=== PATIENT | male | born 1935 | race African-American/Black ===

== ENCOUNTER 2017-10-13 14:48 | Inpatient (IN) | payer MEDICARE, MEDICAID ==
[~2017-10-13] VITALS: Ht 170.2 cm; Wt 77.1 kg
[2017-10-13 16:26] LABS: BASOPHILS % 0.8 % (0.0-2.0); EOSINOPHILS % 0.7 % (0.0-5.0); HEMATOCRIT. 41.5 % (42.0-52.0); HEMOGLOBIN. 13.8 g/dL (14.0-18.0); LYMPHOCYTES % 11.1 % (20.0-50.0); MEAN CORPUSCULAR HEMOGLOBIN 27.9 pg (28.0-32.0); MEAN CORPUSCULAR VOLUME 84.2 fL (80.0-94.0); MONOCYTES % 5.9 % (2.0-8.0); NEUTROPHILS % 81.5 % (40.0-76.0); PLATELET 214 x1000/uL (130-400); RED BLOOD CELL COUNT 4.93 mill/uL (4.7-6.1); RED CELL DISTRIBUTION WIDTH 15.6 % (11.6-14.6)
[2017-10-13] MEDS ORDERED: LEVOFLOXACIN 750MG PREMIX 150 ML IV ONE (16:30)
[2017-10-13 16:32] LABS: CHLORIDE 103 mEq/L (98-107); INR 1.1
[2017-10-13] MEDS ORDERED: SODIUM CHLORIDE 0.9% 1,000 ML IV ONE (17:41)
[2017-10-13 17:55] LABS: CLARITY URINE CLEAR (CLEAR); COLOR URINE YELLOW (YELLOW); KETONES URINE NEGATIVE (NEGATIVE); LEUKOCYTE ESTERASE URINE NEGATIVE (NEGATIVE); NITRITE URINE NEGATIVE (NEGATIVE); OCCULT BLOOD URINE NEGATIVE (NEGATIVE); PH URINE 6.5 (4.5-8.0); PROTEIN URINE NEGATIVE (NEGATIVE); UROBILINOGEN URINE 0.2 E.U./dL (0.2-1.0)
[2017-10-13 20:00] VITALS: BP 139/102
[2017-10-13 22:00] VITALS: BP 139/99
[2017-10-13] MEDS ORDERED: ACETAMINOPHEN 325MG TABLET PO PRN (22:00)
[2017-10-13 22:57] LABS: BASOPHILS % 0.4 % (0.0-2.0); EOSINOPHILS % 0.3 % (0.0-5.0); HEMATOCRIT. 39.5 % (42.0-52.0); HEMOGLOBIN. 13.1 g/dL (14.0-18.0); LYMPHOCYTES % 12.2 % (20.0-50.0); MEAN CORPUSCULAR HEMOGLOBIN 27.7 pg (28.0-32.0); MEAN CORPUSCULAR VOLUME 83.8 fL (80.0-94.0); MONOCYTES % 4.1 % (2.0-8.0); PLATELET 218 x1000/uL (130-400); RED BLOOD CELL COUNT 4.72 mill/uL (4.7-6.1); RED CELL DISTRIBUTION WIDTH 15.1 % (11.6-14.6)
[2017-10-14] VITALS (7 sets, daily range): BP systolic 123–154; BP diastolic 9–100
[2017-10-14] MEDS: ENOXAPARIN 40MG/0.4ML SYR SUBCUT SCH (08:22)
[2017-10-14] MEDS: IPRATROPIUM/ALBUTEROL 0.5-3(2.5)MG/3ML NEB HHN SCH ×4 (12:30→23:57)
[2017-10-14] MEDS ORDERED: CLONIDINE 0.1MG TABLET PO PRN (13:45)
[2017-10-14] MEDS: LEVOFLOXACIN 500MG PREMIX 100 ML IV SCH (17:06)
[2017-10-15] VITALS: BP 139/92
[2017-10-15 04:00] VITALS: BP 144/98
[2017-10-15] MEDS: IPRATROPIUM/ALBUTEROL 0.5-3(2.5)MG/3ML NEB HHN SCH ×5 (04:11→20:00)
[2017-10-15 06:40] LABS: BASOPHILS % 0.4 % (0.0-2.0); EOSINOPHILS % 2.9 % (0.0-5.0); HEMATOCRIT. 38.2 % (42.0-52.0); HEMOGLOBIN. 12.6 g/dL (14.0-18.0); LYMPHOCYTES % 17.8 % (20.0-50.0); MEAN CORPUSCULAR HEMOGLOBIN 27.8 pg (28.0-32.0); MEAN CORPUSCULAR VOLUME 84.6 fL (80.0-94.0); MEAN PLATELET VOLUME 9.4 fl (7.4-10.4); MONOCYTES % 7.1 % (2.0-8.0); NEUTROPHILS % 71.8 % (40.0-76.0); PLATELET 187 x1000/uL (130-400); RED BLOOD CELL COUNT 4.52 mill/uL (4.7-6.1); RED CELL DISTRIBUTION WIDTH 15.3 % (11.6-14.6)
[2017-10-15 07:09] LABS: CHLORIDE 104 mEq/L (98-107)
[2017-10-15 08:00] VITALS: BP 148/90
[2017-10-15] MEDS: ENOXAPARIN 40MG/0.4ML SYR SUBCUT SCH (09:43)
[2017-10-15] MEDS ORDERED: IPRATROPIUM/ALBUTEROL 0.5-3(2.5)MG/3ML NEB HHN PRN (10:30)
[2017-10-15 12:00] VITALS: BP 144/91
[2017-10-15 16:00] VITALS: BP 124/83
[2017-10-15] MEDS: LEVOFLOXACIN 500MG PREMIX 100 ML IV SCH (18:22)
[2017-10-15] MEDS ORDERED: METRONIDAZOLE 500MG TABLET PO SCH (21:00)
== END 2017-10-15 21:40 | disposition home or self-care (01) | DRG 871 ==
LOC: EDBEDREQ 17:41 → EDBEDREQTM 17:41 → ER 18:03 → ENRESERV 18:41 → 8WST 19:55
PROVIDERS: ADMIT Internal Medicine; ATTEND Internal Medicine
DX: A41.9 Sepsis, unspecified organism (principal); J96.00 Acute respiratory failure, unspecified whether with hypoxia or hypercapnia; J18.9 Pneumonia, unspecified organism; I50.40 Unspecified combined systolic (congestive) and diastolic (congestive) heart failure; I25.10 Atherosclerotic heart disease of native coronary artery without angina pectoris; D64.9 Anemia, unspecified; E78.00 Pure hypercholesterolemia, unspecified; I11.0 Hypertensive heart disease with heart failure; E78.5 Hyperlipidemia, unspecified; E87.6 Hypokalemia; F03.90 Unspecified dementia, unspecified severity, without behavioral disturbance, psychotic disturbance, mood disturbance, and anxiety; I73.9 Peripheral vascular disease, unspecified; Z95.0 Presence of cardiac pacemaker; Z85.46 Personal history of malignant neoplasm of prostate; Z86.73 Personal history of transient ischemic attack (TIA), and cerebral infarction without residual deficits
CPT/HCPCS: 36415; 71045; 80048; 80053; 80061; 81003; 83605; 83880; 84443; 84484; 85025; 85610; 87040; 92610; 93005; 93306; 94640; 96365; 96366; 97162; 97530; 99285; J1650; J1956; J7030; J7050; J7620

== ENCOUNTER 2018-04-05 12:31 | Emergency (ER) | payer MEDICARE, MEDICAID ==
[~2018-04-05] VITALS: Ht 172.7 cm; Wt 82.0 kg
[2018-04-05 12:47] VITALS: BP 166/104
== END 2018-04-05 18:11 | disposition left against medical advice (07) ==
LOC: ER 12:31
DX: R53.1 Weakness (principal); Z53.21 Procedure and treatment not carried out due to patient leaving prior to being seen by health care provider
CPT/HCPCS: 82962

== ENCOUNTER 2018-05-06 20:29 | Inpatient (IN) | payer OTHER, MEDICAID ==
[~2018-05-06] VITALS: Ht 172.7 cm; Wt 83.9 kg
[2018-05-07] MEDS ORDERED: SODIUM CHLORIDE 0.9% 1,000 ML IV ONE (00:05)
[2018-05-07] MEDS ORDERED: KETOROLAC 30MG/ML VIAL IV STA (00:05)
[2018-05-07 00:34] LABS: EOSINOPHILS % 3.8 % (0.0-5.0); HEMATOCRIT. 38.8 % (42.0-52.0); HEMOGLOBIN. 12.7 g/dL (14.0-18.0); LYMPHOCYTES % 26.1 % (20.0-50.0); MEAN CORPUSCULAR HEMOGLOBIN 27.7 pg (28.0-32.0); MEAN CORPUSCULAR VOLUME 84.7 fL (80.0-94.0); MEAN PLATELET VOLUME 8.8 fl (7.4-10.4); MONOCYTES % 9.2 % (2.0-8.0); NEUTROPHILS % 59.9 % (40.0-76.0); PLATELET 307 x1000/uL (130-400); RED BLOOD CELL COUNT 4.59 mill/uL (4.7-6.1); RED CELL DISTRIBUTION WIDTH 14.7 % (11.6-14.6)
[2018-05-07 00:40] LABS: CHLORIDE 107 mEq/L (98-107)
[2018-05-07 00:48] LABS: CREATINE KINASE 146 IU/L (39-308)
[2018-05-07 01:52] LABS: CLARITY URINE CLEAR (CLEAR); COLOR URINE YELLOW (YELLOW); KETONES URINE NEGATIVE (NEGATIVE); LEUKOCYTE ESTERASE URINE NEGATIVE (NEGATIVE); NITRITE URINE NEGATIVE (NEGATIVE); OCCULT BLOOD URINE NEGATIVE (NEGATIVE); PH URINE 5.5 (4.5-8.0); PROTEIN URINE NEGATIVE (NEGATIVE); SPECIFIC GRAVITY URINE 1.021 (1.005-1.030)
[2018-05-07] MEDS ORDERED: OLANZAPINE 10 MG/VIAL IM NR (02:15)
[2018-05-07 10:30] VITALS: BP 135/94
[2018-05-07 11:58] VITALS: BP 140/84
[2018-05-07] MEDS ORDERED: AMLO10TA80 PO (14:05)
[2018-05-07] MEDS ORDERED: ASPI-1159 PO (14:05)
[2018-05-07] MEDS ORDERED: ATOR40TA70 PO (14:05)
[2018-05-07] MEDS ORDERED: TICA90TA PO (14:05)
[2018-05-07] MEDS ORDERED: CARV12.545 PO (14:05)
[2018-05-07 16:00] VITALS: BP 126/80
[2018-05-07] MEDS ORDERED: ACETAMINOPHEN 325MG TABLET PO PRN (17:15)
[2018-05-07] MEDS: CARVEDILOL 12.5MG TABLET PO SCH (17:34)
[2018-05-07] MEDS: TICAGRELOR 90 MG TABLET PO SCH (17:34)
[2018-05-07 20:28] VITALS: BP 180/100
[2018-05-07 20:38] VITALS: BP 127/73
[2018-05-07] MEDS: ATORVASTATIN CALCIUM 40MG TABLET PO SCH (21:09)
[2018-05-08] VITALS (7 sets, daily range): BP systolic 118–169; BP diastolic 70–95
[2018-05-08 05:34] LABS: BASOPHILS % 1.2 % (0.0-2.0); EOSINOPHILS % 6.2 % (0.0-5.0); HEMATOCRIT. 38.1 % (42.0-52.0); HEMOGLOBIN. 12.5 g/dL (14.0-18.0); LYMPHOCYTES % 31.3 % (20.0-50.0); MEAN CORPUSCULAR HEMOGLOBIN 28.1 pg (28.0-32.0); MEAN CORPUSCULAR VOLUME 85.2 fL (80.0-94.0); MEAN PLATELET VOLUME 8.6 fl (7.4-10.4); MONOCYTES % 7.5 % (2.0-8.0); NEUTROPHILS % 53.8 % (40.0-76.0); PLATELET 300 x1000/uL (130-400); RED BLOOD CELL COUNT 4.47 mill/uL (4.7-6.1); RED CELL DISTRIBUTION WIDTH 14.7 % (11.6-14.6)
[2018-05-08 06:59] LABS: CHLORIDE 111 mEq/L (98-107)
[2018-05-08 07:07] LABS: LDL CHOLESTEROL 69 mg/dL (5-100)
[2018-05-08 07:08] LABS: PHOSPHORUS 3.4 mg/dL (2.5-4.9)
[2018-05-08 07:10] LABS: HDL CHOLESTEROL 71 mg/dL (40-59)
[2018-05-08 07:15] LABS: T4 FREE 0.98 ng/dL (0.76-1.46); TOTAL IRON BINDING CAPACITY 213 ug/dL (250-450)
[2018-05-08 07:31] LABS: VITAMIN B12 SERUM 811 pg/mL (211-911)
[2018-05-08] MEDS: AMLODIPINE 10MG TABLET PO SCH (11:30)
[2018-05-08] MEDS: ASPIRIN 81MG TABLET PO SCH (11:31)
[2018-05-08] MEDS: CARVEDILOL 12.5MG TABLET PO SCH ×2 (11:31→17:56)
[2018-05-08] MEDS: TICAGRELOR 90 MG TABLET PO SCH ×2 (11:31→17:56)
[2018-05-08] MEDS ORDERED: INFLUENZA VIRUS VACCINE(AFLURIA) 0.5ML SYR IM ONE (17:45)
[2018-05-08] MEDS ORDERED: PNEUMOCOCCAL 23-VAL P-SAC VAC 0.5 ML IM ONE (17:45)
[2018-05-08] MEDS: ATORVASTATIN CALCIUM 40MG TABLET PO SCH (21:26)
[2018-05-08] MEDS: MEMANTINE HCL 5MG TABLET PO SCH (21:27)
[2018-05-09] VITALS: BP 127/88
[2018-05-09 04:00] VITALS: BP 130/79
[2018-05-09 07:14] LABS: BASOPHILS % 1.1 % (0.0-2.0); EOSINOPHILS % 5.8 % (0.0-5.0); HEMATOCRIT. 40.4 % (42.0-52.0); HEMOGLOBIN. 12.9 g/dL (14.0-18.0); LYMPHOCYTES % 22.4 % (20.0-50.0); MEAN CORPUSCULAR HEMOGLOBIN 27.5 pg (28.0-32.0); MEAN CORPUSCULAR VOLUME 86.1 fL (80.0-94.0); MEAN PLATELET VOLUME 9.1 fl (7.4-10.4); MONOCYTES % 6.2 % (2.0-8.0); NEUTROPHILS % 64.5 % (40.0-76.0); PLATELET 298 x1000/uL (130-400); RED BLOOD CELL COUNT 4.69 mill/uL (4.7-6.1); RED CELL DISTRIBUTION WIDTH 14.6 % (11.6-14.6)
[2018-05-09 08:00] VITALS: BP 146/90
[2018-05-09] MEDS: ASPIRIN 81MG TABLET PO SCH (09:01)
[2018-05-09] MEDS: AMLODIPINE 10MG TABLET PO SCH (09:01)
[2018-05-09] MEDS: TICAGRELOR 90 MG TABLET PO SCH (09:01)
[2018-05-09] MEDS: CARVEDILOL 12.5MG TABLET PO SCH (09:01)
[2018-05-09] MEDS: MEMANTINE HCL 5MG TABLET PO SCH (09:01)
[2018-05-09 13:06] VITALS: BP 131/80
[2018-05-12 04:11] LABS: 25-HYDROXY VITAMIN D3 15 ng/mL (.)
== END 2018-05-09 16:15 | disposition home or self-care (01) | DRG 72 ==
LOC: ER 20:29 → 8WST 05-07 03:06 → EDBEDREQ 05-07 03:09 → EDBEDREQTM 05-07 03:09 → ENRESERV 05-07 07:25
PROVIDERS: ADMIT Internal Medicine; ATTEND Internal Medicine
DX: G93.40 Encephalopathy, unspecified (principal); Z74.01 Bed confinement status; I25.10 Atherosclerotic heart disease of native coronary artery without angina pectoris; R62.7 Adult failure to thrive; R41.89 Other symptoms and signs involving cognitive functions and awareness; F03.90 Unspecified dementia, unspecified severity, without behavioral disturbance, psychotic disturbance, mood disturbance, and anxiety; E78.5 Hyperlipidemia, unspecified; C61 Malignant neoplasm of prostate; F17.200 Nicotine dependence, unspecified, uncomplicated; I11.9 Hypertensive heart disease without heart failure; Z90.49 Acquired absence of other specified parts of digestive tract; Z95.0 Presence of cardiac pacemaker; Z71.6 Tobacco abuse counseling
CPT/HCPCS: 36415; 71045; 72100; 73521; 74176; 80061; 80069; 80076; 82306; 82550; 82607; 83036; 83540; 83550; 83735; 83880; 84100; 84153; 84439; 84443; 84481; 84484; 84550; 85651; 90686; 90732; 93005; 93923; 93970; 96361; 96372; 96374; 97162; 97166; 99285; J1885; J3490; J7030; G0103; J8499

== ENCOUNTER 2018-05-27 11:38 | Inpatient (IN) | payer OTHER, MEDICAID ==
[~2018-05-27] VITALS: Ht 180.3 cm; Wt 76.8 kg
[~2018-05-27 11:38] MED LIST: AMLO10TA80 PO; ASPI-1159 PO; ATOR40TA70 PO; CARV12.545 PO; TICA90TA PO
[2018-05-27] MEDS ORDERED: SODIUM CHLORIDE 0.9% 1,000 ML IV ONE (11:58)
[2018-05-27] MEDS ORDERED: ONDANSETRON HCL 4MG/2ML INJ IV STA (11:58)
[2018-05-27] MEDS ORDERED: ASPIRIN 81MG TABLET PO ONE (12:00)
[2018-05-27 12:52] LABS: HEMATOCRIT. 39.6 % (42.0-52.0); HEMOGLOBIN. 12.8 g/dL (14.0-18.0); MEAN CORPUSCULAR VOLUME 83.5 fL (80.0-94.0); MEAN PLATELET VOLUME 9.1 fl (7.4-10.4); PLATELET 276 x1000/uL (130-400); RED BLOOD CELL COUNT 4.74 mill/uL (4.7-6.1); RED CELL DISTRIBUTION WIDTH 15.2 % (11.6-14.6)
[2018-05-27 12:54] LABS: CHLORIDE 103 mEq/L (98-107)
[2018-05-27 13:26] LABS: PLATELET ESTIMATE NORMAL
[2018-05-27 14:24] LABS: CLARITY URINE CLOUDY (CLEAR); COLOR URINE DARK YELLOW (YELLOW); KETONES URINE TRACE (NEGATIVE); LEUKOCYTE ESTERASE URINE 1+ (NEGATIVE); NITRITE URINE NEGATIVE (NEGATIVE); OCCULT BLOOD URINE NEGATIVE (NEGATIVE); PROTEIN URINE 1+ (NEGATIVE); SPECIFIC GRAVITY URINE 1.026 (1.005-1.030)
[2018-05-27] MEDS ORDERED: CEFTRIAXONE 1 G PREMIX 50 ML IV ONE (15:30)
[2018-05-27] MEDS ORDERED: PIPERACILLIN/TAZOBACTAM 3.375GM/50ML PREMIX IV ONE (16:15)
[2018-05-27] MEDS ORDERED: PIPERACILLIN/TAZ 3.375G PREMIX 50 ML IV NR (16:25)
[2018-05-28] VITALS (9 sets, daily range): BP systolic 91–155; BP diastolic 62–86
[2018-05-28] MEDS ORDERED: ACETAMINOPHEN 325MG TABLET PO PRN (03:15)
[2018-05-28] MEDS ORDERED: ONDANSETRON HCL 4MG/2ML INJ IV PRN (03:15)
[2018-05-28] MEDS ORDERED: HYDROCODONE/ACETAMINOPHEN 5/325MG TABLET PO PRN (03:15)
[2018-05-28] MEDS ORDERED: SODIUM CHL 0.45% + KCL 20MEQ/L 1,000 ML IV SCH (04:00)
[2018-05-28] MEDS: SODIUM CHLORIDE 0.45% 1,000 ML IV SCH ×2 (04:44→15:42)
[2018-05-28] MEDS: PIPERACILLIN/TAZ 2.25G PREMIX 50 ML IV SCH ×4 (04:44→21:29)
[2018-05-28] MEDS ORDERED: PIPERACILLIN/TAZ 3.375G PREMIX 50 ML IV SCH (06:00)
[2018-05-28 08:17] LABS: HEMATOCRIT. 32.2 % (42.0-52.0); HEMOGLOBIN. 10.6 g/dL (14.0-18.0); MEAN CORPUSCULAR HEMOGLOBIN 27.2 pg (28.0-32.0); MEAN PLATELET VOLUME 8.9 fl (7.4-10.4); PLATELET 200 x1000/uL (130-400); RED BLOOD CELL COUNT 3.88 mill/uL (4.7-6.1); RED CELL DISTRIBUTION WIDTH 15.1 % (11.6-14.6)
[2018-05-28 08:34] LABS: T4 FREE 1.22 ng/dL (0.76-1.46)
[2018-05-28] MEDS: PANTOPRAZOLE SODIUM 40 MG/VIAL IV SCH (09:03)
[2018-05-28 11:33] LABS: PLATELET ESTIMATE NORMAL
[2018-05-28] MEDS ORDERED: DOCUSATE SODIUM 100MG CAPSULE PO PRN (17:00)
[2018-05-28] MEDS ORDERED: CLONIDINE 0.1MG TABLET PO PRN (17:00)
[2018-05-28] MEDS ORDERED: DIPHENHYDRAMINE 50MG/ML VIAL IV PRN (17:00)
[2018-05-28] MEDS: ASPIRIN 81MG TABLET PO SCH (17:50)
[2018-05-28] MEDS: ENOXAPARIN 30MG/0.3ML SYR SUBCUT SCH (17:50)
[2018-05-28 18:16] LABS: *AMPHETAMINES SCREEN URINE NEGATIVE (NEGATIVE); *BARBITURATES SCREEN URINE NEGATIVE (NEGATIVE)
[2018-05-28 18:17] LABS: *BENZODIAZEPINES SCREEN URINE NEGATIVE (NEGATIVE); *COCAINE SCREEN URINE NEGATIVE (NEGATIVE); METHADONE URINE SCREEN NEGATIVE (NEGATIVE); OPIATES URINE SCREEN PRESUMTIVE POSITIVE (NEGATIVE)
[2018-05-28 18:18] LABS: CANNABINOID URINE SCREEN NEGATIVE (NEGATIVE); PHENCYCLIDINE URINE SCREEN NEGATIVE (NEGATIVE)
[2018-05-29] VITALS (11 sets, daily range): BP systolic 100–141; BP diastolic 56–96
[2018-05-29] MEDS: PIPERACILLIN/TAZ 2.25G PREMIX 50 ML IV SCH ×3 (05:10→17:03)
[2018-05-29 06:25] LABS: HEMATOCRIT 32.2 % (42.0-52.0); HEMOGLOBIN 10.5 g/dL (14.0-18.0); MEAN CORPUSCULAR HEMOGLOBIN 26.9 pg (28.0-32.0); MEAN CORPUSCULAR VOLUME 82.7 fL (80.0-94.0); PLATELET 176 x1000/uL (130-400); RED CELL DISTRIBUTION WIDTH 15.5 % (11.6-14.6)
[2018-05-29 06:32] LABS: INR 1.1; PROTHROMBIN TIME 11.3 sec (9.6-11.0)
[2018-05-29] MEDS: ASPIRIN 81MG TABLET PO SCH (08:04)
[2018-05-29] MEDS: LEVOTHYROXINE SODIUM 25MCG TABLET PO SCH (08:04)
[2018-05-29] MEDS: PANTOPRAZOLE SODIUM 40 MG/VIAL IV SCH (08:04)
[2018-05-29] MEDS: SODIUM CHLORIDE 0.45% 1,000 ML IV SCH ×2 (08:17→17:03)
[2018-05-29] MEDS: ENOXAPARIN 30MG/0.3ML SYR SUBCUT SCH (17:03)
[2018-05-29] MEDS: AMOXICILLIN/POTASSIUM CLAVULANATE 500/125MG TAB PO SCH (21:41)
[2018-05-30] VITALS (14 sets, daily range): BP systolic 130–161; BP diastolic 67–108
[2018-05-30 06:01] LABS: HEMOGLOBIN 10.9 g/dL (14.0-18.0); MEAN CORPUSCULAR HEMOGLOBIN 26.6 pg (28.0-32.0); MEAN CORPUSCULAR VOLUME 82.8 fL (80.0-94.0); PLATELET 184 x1000/uL (130-400); RED CELL DISTRIBUTION WIDTH 15.6 % (11.6-14.6)
[2018-05-30] MEDS: SODIUM CHLORIDE 0.45% 1,000 ML IV SCH ×2 (06:39→20:30)
[2018-05-30] MEDS: LEVOTHYROXINE SODIUM 25MCG TABLET PO SCH (08:59)
[2018-05-30] MEDS: AMOXICILLIN/POTASSIUM CLAVULANATE 500/125MG TAB PO SCH ×2 (08:59→21:00)
[2018-05-30] MEDS: ASPIRIN 81MG TABLET PO SCH (08:59)
[2018-05-30] MEDS ORDERED: FAMOTIDINE 20MG TABLET PO SCH (09:00)
[2018-05-30] MEDS ORDERED: LIDOCAINE HCL/PF 1% 2ML VIAL ONE (14:17)
[2018-05-30 14:58] LABS: BG BASE EXCESS -3.9 mmol/L (-2.0-2.0); BG CARBOXYHEMOGLOBIN 0.2 % (0.5-1.5); BG DEOXYHEMOGLOBIN 3.9 % (0.0-5.0); BG FRACTION INSPIRED OXYGEN 21; BG HCO3 ACT 19.3 mmol/L (22.0-26.0); BG METHEMOGLOBIN 0.2 % (0.0-1.5); BG OXYGEN SATURATION 96.1 % (92.0-98.5); BG OXYHEMOGLOBIN 95.7 % (94.0-97.0); BG PCO2 29.7 mmHg (35.0-45.0); BG SAMPLE SITE RIGHT RADIAL; BG TOTAL HEMOGLOBIN 12.4 g/dL (12.0-18.0); BG VENT MODE ROOM AIR
[2018-05-30] MEDS: ENOXAPARIN 30MG/0.3ML SYR SUBCUT SCH (17:30)
== END 2018-05-30 23:51 | disposition home health service (06) | DRG 871 ==
LOC: ER 11:38 → 5EST 17:21 → EDBEDREQ 17:23 → EDBEDREQSVC 17:23 → ENRESERV 05-28 00:01
PROVIDERS: ADMIT Internal Medicine; ATTEND Internal Medicine
DX: A41.9 Sepsis, unspecified organism (principal); I21.4 Non-ST elevation (NSTEMI) myocardial infarction; N39.0 Urinary tract infection, site not specified; N17.9 Acute kidney failure, unspecified; G93.40 Encephalopathy, unspecified; E87.2 Acidosis; E87.5 Hyperkalemia; E86.0 Dehydration; E03.9 Hypothyroidism, unspecified; F01.50 Vascular dementia, unspecified severity, without behavioral disturbance, psychotic disturbance, mood disturbance, and anxiety; I13.10 Hypertensive heart and chronic kidney disease without heart failure, with stage 1 through stage 4 chronic kidney disease, or unspecified chronic kidney disease; I72.3 Aneurysm of iliac artery; N18.9 Chronic kidney disease, unspecified; Z85.46 Personal history of malignant neoplasm of prostate; Z86.73 Personal history of transient ischemic attack (TIA), and cerebral infarction without residual deficits; Z95.0 Presence of cardiac pacemaker
CPT/HCPCS: 36415; 36600; 71045; 72131; 76770; 80048; 80076; 80305; 82375; 82805; 82962; 83036; 83605; 83880; 84153; 84439; 84443; 84484; 85027; 93005; 93970; 96361; 96365; 96368; 96375; 97162; 99291; C9113; J0696; J1650; J2405; J2543; J3480; J3490; J7030; G0103